=== PATIENT | female | born 1970 | race Caucasian/White ===

== ENCOUNTER 2016-12-01 07:53 | Inpatient (IN) ==
[2016-12-01] MEDS ORDERED: Aspirin 81 MG TAB.CHEW PO ONE (08:10)
--- NOTE | 2016-12-01 08:12 | Emergency Department Note ---
Disposition Clinical Impression: Chest pain Qualifiers: Chest pain type: unspecified Qualified Code(s): R07.9 - Chest pain, unspecified Disposition: Admitted As Inpatient Condition: Fair Time of Disposition: 10:11 Chest Pain HPI - General Chief Complaint: ED Chest Pain Stated Complaint: chest pains,right arm pain Time Seen by Provider: 12/01/16 07:58 Source: patient Limitations: no limitations Vital Signs Reviewed: Yes Nursing Notes Reviewed: Yes - History of Present Illness HPI Narrative: 46-year-old female with history of rheumatoid arthritis, obesity, family history of [place], presents with chest pain at rest going to her right scapula. It chest pain with acute onset at 5 AM, came to ER with continued 8 out of 10 crampy aching chest pain +nausea, radiating across her right chest and right back. history of rheumatoid arthritis, history of myalgia, states she still having pain has not taken any medication for pain. Denies : Leg swelling, estrogen use, prolonged recumbency or travel, previous DVT, denies fever chills weight loss weight changes, productive cough, vomiting, diarrhea, constipation. Pt complaint: chest pain Onset (ago): hour(s) Time: 05:00 Duration: constant Onset: during rest Pain Location: left chest Severity scale (1-10): 8 Quality: aching Pain Radiation: RUE, back Worsens with: exertion Associated symptoms: Reports: nausea. Denies: vomiting, diaphoresis, dyspnea, sense of impending doom Treatments prior to arrival chest pain: none - Related Data Home Medications Medication Instructions Recorded Confirmed Calcium Carbonate/Vitamin D3 1 tab PO DAILY 12/01/16 12/01/16 [Calcium 600-Vit D3 200 Tablet] Cetirizine HCl [All Day Allergy] 10 mg PO DAILY 12/01/16 12/01/16 Estrogens, Conjugated [Premarin] 0.625 mg PO DAILY 12/01/16 12/01/16 Famotidine [Heartburn Prevention] 10 mg PO DAILY 12/01/16 12/01/16 Folic Acid 1 mg PO DAILY 12/01/16 12/01/16 Gabapentin [Neurontin] 400 mg PO BID 12/01/16 12/01/16 Hydroxychloroquine [Plaquenuil] 200 mg PO DAILY 12/01/16 12/01/16 Methocarbamol [Robaxin] 500 mg PO BID PRN 12/01/16 12/01/16 Methotrexate [Otrexup] 15 mg PO QWEEK 12/01/16 12/01/16 Omeprazole [PriLOSEC] 40 mg PO DAILY 12/01/16 12/01/16 Tramadol HCl [Ultram] 100 mg PO BID PRN 12/01/16 12/01/16 Allergies Allergy/AdvReac Type Severity Reaction Status Date / Time cefuroxime [From Ceftin] Allergy Rash Verified 08/02/15 15:51 All systems ED: reviewed and negative except as stated. Constitutional: Denies: fever, chills Eyes: Denies: eye pain, eye discharge Cardiovascular: Reports: as per HPI, chest pain. Denies: palpitations Respiratory: Reports: as per HPI. Denies: cough, dyspnea Gastrointestinal: Denies: abdominal pain, nausea Genitourinary: Denies: urgency, dysuria Musculoskeletal: Reports: as per HPI, back pain. Denies: neck pain Integumentary: Denies: rash, abrasion Neurological: Denies: headache, weakness Chest Pain PMH - Past Medical History Medical history: Reports: arthritis, other Psychiatric history: Reports: no psych history - Social History Smoking Status: Never smoker Alcohol use: Reports: none Drug use: Reports: none Physical Exam Constitutional: alert and oriented, in NAD, vital signs reviewed and wnl HEENT: NCAT, sclera anicteric, PERRLA bilaterally, normal external ears bilaterally, nasal septum nondeviated, average dentition, MMM Neck: normal inspection, neck is supple, trachea midline Resp: normal chest inspection, CTA bilaterally, no resp distress CV: RRR, no m/g/r GI: normal inspection, Soft, NTND, BS present Back: normal inspection, no tenderness to palpation Neuro: A&O3, no gross motor or sensory deficits bilaterally MSK: normal inspection, bilateral UE and LE with normal ROM Psych: normal mood, normal affect Skin: No rashes, skin warm, dry, intact - General Limitations: no limitations General appearance: alert, in no apparent distress Course Course Narrative: 38-year-old female with atypical chest pain in the right chest going to the right arm, patient will get nitroglycerin, chest pain workup, concerned even though her heart score is 3-4, she does have risk factors of obesity, rheumatoid arthritis and family history, and she has never had an ischemic evaluation, there are some subtle half millimeter ST elevations in her lateral leads, there were not seen on previous EKG but that was 2010, will reassess - Reevaluation(s) Reevaluation #1: Given that the patient's symptoms improved completely with nitroglycerin, and she now has no chest pain, her repeated EKG shows no worsening changes, just still slight ST segment depressions mostly in V5, patient has atypical chest pain symptoms which are more specific for anginal chest pain female middle-aged patients, therefore will admit for chest pain rule out Time: 10:10 Vital Signs Temperature 97.7 F 12/01/16 07:56 Pulse Rate 72 12/01/16 07:56 Respiratory Rate 18 12/01/16 07:56 Blood Pressure 134/95 12/01/16 07:56 O2 Sat by Pulse Oximetry 98 12/01/16 07:56 Temperature 97.7 F 12/01/16 07:56 Pulse Rate 78 12/01/16 08:45 Respiratory Rate 16 12/01/16 10:21 Blood Pressure 114/81 12/01/16 10:21 O2 Sat by Pulse Oximetry 95 12/01/16 08:35 Oxygen Delivery Oxygen Delivery Room Air Chest Pain - MDM Narrative Medical decision making narrative: 38-year-old female with chest pain, [facility] in stable condition troponin negative, EKG with slight nonspecific ST changes, aspirin given in the emergency department, chest pain-free at the time of ED disposition - Differential Diagnosis Likely: pneumothorax, stable angina, unstable angina pectoris, atypical chest pain - Medical Records Medical records reviewed: Yes I reviewed the patient's medical records. - Lab Data Lab results reviewed: Yes I reviewed the patient's lab results. Result diagrams: 12/01/16 08:11 12/01/16 08:11 Lab Results 12/01/16 12/01/16 12/01/16 Range/Units 08:11 08:11 08:11 WBC 5.3 (4.3-11.1) K/mcL RBC 4.91 (3.82-4.97) M/mcL Hgb 14.7 (11.5-15.4) g/dL Hct 44.2 (35.3-44.9) % MCV 90.0 (83.0-100.0) fL MCH 29.9 (28.0-33.3) pg MCHC 33.3 (31.6-35.5) g/dL RDW 12.5 (11.5-14.5) % Plt Count 224 (140-400) K/mcL MPV 9.2 L (9.4-12.4) fL Immature Gran % 0.2 (0-4) % Seg Neutrophils % 57.4 % Lymphocytes % 29.2 % Monocytes % 9.6 % Eosinophils % 3.2 % Basophils % 0.4 % Neutrophils # 3.1 (1.6-8.9) K/mcL Lymphocytes # 1.6 (0.6-4.6) K/mcL Monocytes # 0.5 (0.0-1.3) K/mcL Eosinophils # 0.2 (0.0-0.6) K/mcL Basophils # 0.0 (0.0-0.2) K/mcL PT 12.9 H (9.4-12.1) Seconds INR 1.2 APTT 28.3 (26.0-36.0) Seconds Sodium 139 (136-145) mEq/L Potassium 4.1 (3.5-4.5) mEq/L Chloride 105 (98-109) mEq/L Carbon Dioxide 27 (19-29) mEq/L BUN 11 (7-20) mg/dL Creatinine 0.83 (0.57-1.11) mg/dL Est GFR ( Amer) > 60 (> 60) Est GFR (Non-Af Amer) > 60 (> 60) BUN/Creatinine Ratio 13 (6-26) Glucose 84 (70-99) mg/dL Calculated Osmolality 287 (280-300) Calcium 9.4 (8.6-10.8) mg/dL Troponin I (0-0.03) ng/mL 12/01/16 Range/Units 08:11 WBC (4.3-11.1) K/mcL RBC (3.82-4.97) M/mcL Hgb (11.5-15.4) g/dL Hct (35.3-44.9) % MCV (83.0-100.0) fL MCH (28.0-33.3) pg MCHC (31.6-35.5) g/dL RDW (11.5-14.5) % Plt Count (140-400) K/mcL MPV (9.4-12.4) fL Immature Gran % (0-4) % Seg Neutrophils % % Lymphocytes % % Monocytes % % Eosinophils % % Basophils % % Neutrophils # (1.6-8.9) K/mcL Lymphocytes # (0.6-4.6) K/mcL Monocytes # (0.0-1.3) K/mcL Eosinophils # (0.0-0.6) K/mcL Basophils # (0.0-0.2) K/mcL PT (9.4-12.1) Seconds INR APTT (26.0-36.0) Seconds Sodium (136-145) mEq/L Potassium (3.5-4.5) mEq/L Chloride (98-109) mEq/L Carbon Dioxide (19-29) mEq/L BUN (7-20) mg/dL Creatinine (0.57-1.11) mg/dL Est GFR ( Amer) (> 60) Est GFR (Non-Af Amer) (> 60) BUN/Creatinine Ratio (6-26) Glucose (70-99) mg/dL Calculated Osmolality (280-300) Calcium (8.6-10.8) mg/dL Troponin I 0.00 (0-0.03) ng/mL - Radiology Data Radiology results reviewed: Yes I reviewed the patient's radiology results. Chest X-Ray 12/01/16 07:58 IMPRESSION: No acute cardiopulmonary disease D/ / Edwin Shane MD / Edwin Shane MD Interpreting Provider: Edwin Shane MD - EKG Data EKG attestation: Yes I reviewed and interpreted this EKG. EKG shows normal: sinus rhythm Rate: normal (6-7 bpm [place] 169 QRS [address] segment elevations or depressions, T-wave inverted she noticed on lead 3 seen on previous EKG January 2011) Rhythm: NSR [place]/QRS: normal ST segment depression in: v5, v6 (0.5 mm) Interpretation: nonspecific ST-T wave changes, other (Repeat EKG at 954 shows 64 bpm [place] 164 QRS 87 QTc [address] segment depression in V5 unchanged ) - Core Measures AMI Core Measures Followed: Yes Heart Score - Score History: Moderately Suspicious EKG: Normal Age: 45-65 Risk Factors: 1-2 risk factors Troponin: Less than normal limit HEART Score Total: 3 Attestation Statement - Attestation Attestation: I examined this patient and my medical decision-making was reviewed with the EXTRA GANG SUPERVISOR/PA/Advanced Practice Nurse/Resident Physician. I agree with the documented findings, disposition and treatment plan as described except to the extent set forth below. Patient emergency department complaining of chest pain. Patient states a local from sleep around 5 AM this morning. The right upper chest and radiates down her right shoulder and arm. The pain is dull since it started. She took some Tylenol which helped. Denies any cardiac history. She does have RA. Examination she is in no distress. She has mild tenderness over the right upper chest. She is unsure if this reproduces the pain or not. It is not reproduced with movement of the arm. Plan. Patient is a very minimal ST depressions. Her troponin is negative. Her pain resolved with nitroglycerin. Patient will be admitted for further cardiac workup.
[2016-12-01 08:23] LABS: INR 1.2; Prothrombin Time 12.9 Seconds (9.4-12.1)
[2016-12-01] MEDS: Nitroglycerin 0.4 MG TAB.SUBL SL PRN ×3 (08:23→08:37)
[2016-12-01 08:25] LABS: Basophils % 0.4 %; Eosinophils # 0.2 K/mcL (0.0-0.6); Eosinophils % 3.2 %; Hematocrit 44.2 % (35.3-44.9); Hemoglobin 14.7 g/dL (11.5-15.4); Immature Granulocytes % 0.2 % (0-4); Lymphocytes # 1.6 K/mcL (0.6-4.6); Lymphocytes % 29.2 %; Mean Corpuscular HGB Conc 33.3 g/dL (31.6-35.5); Mean Corpuscular Hemoglobin 29.9 pg (28.0-33.3); Mean Platelet Volume 9.2 fL (9.4-12.4); Monocytes # 0.5 K/mcL (0.0-1.3); Monocytes % 9.6 %; Neutrophils # 3.1 K/mcL (1.6-8.9); Platelet Count 224 K/mcL (140-400); Red Blood Count 4.91 M/mcL (3.82-4.97); Red Cell Distribution Width 12.5 % (11.5-14.5); Segmented Neutrophils % 57.4 %
[2016-12-01 08:26] LABS: Activated Partial Thrombo Time 28.3 Seconds (26.0-36.0)
[2016-12-01 08:32] LABS: BUN/Creatinine Ratio 13 (6-26); Blood Urea Nitrogen 11 mg/dL (7-20); Calcium 9.4 mg/dL (8.6-10.8); Carbon Dioxide 27 mEq/L (19-29); Chloride 105 mEq/L (98-109); Glucose 84 mg/dL (70-99); Osmolality,Calculated 287 (280-300); Potassium 4.1 mEq/L (3.5-4.5); Sodium 139 mEq/L (136-145); eGFR For African Americans > 60 (> 60); eGFR For Non-African Americans > 60 (> 60)
[2016-12-01] MEDS ORDERED: Acetaminophen 325 MG TABLET PO PRN (11:24)
[2016-12-01] MEDS ORDERED: *HR* Morphine 2 MG/ML SYRINGE IVP PRN (11:24)
[2016-12-01] MEDS ORDERED: Ondansetron 4 MG/2 ML VIAL IVP PRN (11:24)
[2016-12-01] MEDS ORDERED: Naloxone 0.4 MG/ML INJ IVP PRN (11:24)
[2016-12-01] MEDS ORDERED: Methocarbamol 500 MG TABLET PO PRN (11:25)
--- NOTE | 2016-12-01 11:29 | Internal Med History&Physical ---
Date of Encounter: 12/01/16 Time of Encounter: 11:28 Assessment and Plan (1) Chest pain Current visit: Yes Status: Acute Atypical, right sided No chest wall tenderness Initial EKG and trop negative CXR unremarkable Risk factors include Lupus, Obesity, Cycle trops, check Lipids Obtain stress test if troponin negative X2 Nitro prn Qualifiers: Chest pain type: unspecified Qualified Code(s): R07.9 - Chest pain, unspecified (2) Lupus Current visit: Yes Status: Chronic Resume home meds Qualifiers: Systemic lupus erythematosus type: unspecified Systemic lupus erythematosus organ involvement: unspecified Qualified Code(s): M32.9 - Systemic lupus erythematosus, unspecified Internal Medicine - H&P: HPI Chief complaint: Chest pain Admitted From: Home Plans for Post Hospital Care: Home History of present illness: Ms. Kim is a 46 year old female with PMH of RA and Lupus on methotrexate, Obesity, presents with R sided chest pain which started at about 5 a.m this morning She describes the pain as sharp and radiating to her R arm, and Upper part of her chest. At the time she had the chest pain, it was 5-6/10, she denies associated n/v, diaporesis, dizziness or feeling of impending doom, no palpitation, no shortness of breath, no abdominal symptoms Chest pain was relieved by nitro given in the ER, she does not know the aggravating factors At time of review, she is chest pain free She denies any other symptoms She denies history of trauma Her mum has "cardiac caths, she is unsure at what age". She has never had any cardiac work up She has never smoked Work up in the ER is unremarkable, CXR WNL, CBC, Chem WNL, EKG NSR X2, no ischemic changes Past Med Surg Social Fam HX - Past Medical History Medical history: arthritis, RA, other Psychiatric history: no psych history - Past Surgical History Surgical History: , cholecystectomy, hysterectomy - Social History Smoking Status: Never smoker Smokeless Tobacco Status: No Alcohol use: none Drug use: none Internal Medicine - H&P: Meds Calcium Carbonate/Vitamin D3 [Calcium 600-Vit D3 200 Tablet] 1 tab PO DAILY [History] Cetirizine HCl [All Day Allergy] 10 mg PO DAILY 12/01/16 [History] Estrogens, Conjugated [Premarin] 0.625 mg PO DAILY 12/01/16 [History] Famotidine [Heartburn Prevention] 10 mg PO QTUTHSA 12/01/16 [History] Folic Acid 1 mg PO DAILY 12/01/16 [History] Gabapentin [Neurontin] 400 mg PO BID 12/01/16 [History] Hydroxychloroquine [Plaquenuil] 200 mg PO DAILY 12/01/16 [History] Methocarbamol [Robaxin] 500 mg PO BID PRN 12/01/16 [History] Methotrexate [Otrexup] 15 mg PO QWEEK 12/01/16 [History] Multivitamin [Multivitamins] 1 each PO DAILY 12/01/16 [History] Omeprazole [PriLOSEC] 40 mg PO QMWFSA 12/01/16 [History] Tramadol HCl [Ultram] 100 mg PO BID PRN 12/01/16 [History] Allergies cefuroxime [From Ceftin] Allergy (Verified 08/02/15 15:51) Rash All Systems PM: A 10-system review of systems was performed and is negative for pertinent findings except as documented above in the HPI. - Constitutional Constitutional: as per HPI - EENT Eyes: as per HPI Ears: as per HPI Nose, mouth and throat: as per HPI - Cardiovascular Cardiovascular ROS IM: as per HPI - Respiratory Respiratory: as per HPI - Gastrointestinal Gastrointestinal: as per HPI - Genitourinary Genitourinary: as per HPI - Musculoskeletal Musculoskeletal ROS IM: as per HPI - Integumentary Integumentary IM: as per HPI - Neurological Neurological ROS: as per HPI - Hematologic/Lymphatic Hematologic/Lymphatic: as per HPI - Constitutional Vitals: Temp Pulse Resp BP Pulse Ox 97.7 F 78 16 114/81 95 12/01/16 07:56 12/01/16 08:45 12/01/16 10:21 12/01/16 10:21 12/01/16 08:35 General appearance: Present: A&O X 3, pleasant, no acute distress, obese - Head Head exam: Present: atraumatic, normocephalic - Eye Eye exam: Present: PERRL, conjuntiva pink, sclera anicteric Pupils: Present: PERRL - Neck Neck exam general surgery: Present: supple, trachea midline. Absent: lymphadenopathy - Respiratory Respiratory exam: Present: CTAB. Absent: accessory muscle use, rales, rhonchi, wheezes - Cardiovascular Cardiovascular exam: Present: RRR, +S1, +S2. Absent: diastolic murmur, gallop, rubs, systolic murmur - GI/Abdominal GI/Abdominal exam: Present: normal bowel sounds, soft, no peritoneal signs. Absent: distended, tenderness - Extremities Exam Extremities exam: Present: warm, radial pulses palpable and symetrical. Absent : calf tenderness, cyanotic, pedal edema - Neurological Exam Neurological exam: Present: alert, CN II-XII intact, oriented X3, no focal deficits. Absent: pronater drift, facial droop, speech deficit - Skin Skin exam: Present: dry, intact Internal Med - H&P Results - Labs CBC & Chem 7: 12/01/16 08:11 12/01/16 08:11
[2016-12-01] MEDS: Gabapentin 400 MG CAPSULE PO SCH ×2 (13:40→20:48)
[2016-12-01] MEDS: Folic Acid 1 MG TABLET PO SCH (13:40)
[2016-12-01] MEDS: Loratadine 10 MG TABLET PO SCH (13:40)
[2016-12-01] MEDS: Famotidine 20 MG TABLET PO SCH (13:40)
[2016-12-01 13:52] LABS: Chol/HDL Ratio 3.4 (0-4.9)
[2016-12-01] MEDS ORDERED: *HR* Heparin 5,000 UNIT/ML VIAL IVP PRN ×2 (14:04)
[2016-12-01] MEDS ORDERED: *HR* Heparin 5,000 UNIT/ML VIAL IVP ONE (14:04)
[2016-12-01] MEDS ORDERED: Heparin 25,000 UNIT/500 ML D5W 25,000 UNIT/500 ML MLS IVC SCH (14:15)
--- NOTE | 2016-12-01 14:33 | Cardiology Consult Note ---
Date of Encounter: 12/01/16 Time of Encounter: 14:30 Assessment and Plan (1) NSTEMI (non-ST elevated myocardial infarction) Current Visit: Yes Status: Acute Troponin 0.00, 0.13. Presented with right sided chest pain that woke her from sleep at 5AM, worse with exertion, radiated to right arm, relieved with nitro. Start heparin gtt, ASA, Statin, BB. Check echo. No prior cardiac hx. Risk factors for CAD include Lupus (inflammatory disease), s/p hysterectomy, and obesity. Recommend [facility]. R/B/A discussed. Pt agrees to proceed, but would like to wait until tomorrow. Currently chest pain free. LHC tomorrow. Continue to follow. Discussion w patient/family: The assessment and plan as outlined above was discussed with the patient and/or family members who expressed understanding and agreement. All questions were answered. Thank you for involving us in the care of your patient. Please call with any questions. I will discuss all the above with Dr. Jain and make changes as necessary. History of Present Illness Consult date: 12/01/16 Requesting physician: Casey Mcdermott Consult reason: NSTEMI Chief complaint: chest pain History of present illness: Ms. Kim is a 46 year old female with PMH of RA and Lupus on methotrexate, Obesity, presents with R sided chest pain which started at about 5 a.m this morning that woke her from sleep, worsened with exertion. She describes the pain as sharp and radiating to her R arm, and Upper part of her chest. At the time she had the chest pain, it was 5-6/10. It was relieved with sublingual nitro in ED without recurrence. Troponin 0.00, 0.13 and cardiology was consulted. Past Med Surg Social Fam HX - Past Medical History Medical history: arthritis, RA, other Psychiatric history: no psych history - Past Surgical History Surgical History: , cholecystectomy, hysterectomy - Social History Smoking Status: Never smoker Smokeless Tobacco Status: No Alcohol use: none Drug use: none Medications and Allergies Calcium Carbonate/Vitamin D3 [Calcium 600-Vit D3 200 Tablet] 1 tab PO DAILY [History] Cetirizine HCl [All Day Allergy] 10 mg PO DAILY 12/01/16 [History] Estrogens, Conjugated [Premarin] 0.625 mg PO DAILY 12/01/16 [History] Famotidine [Heartburn Prevention] 10 mg PO QTUTHSA 12/01/16 [History] Folic Acid 1 mg PO DAILY 12/01/16 [History] Gabapentin [Neurontin] 400 mg PO BID 12/01/16 [History] Hydroxychloroquine [Plaquenuil] 200 mg PO DAILY 12/01/16 [History] Methocarbamol [Robaxin] 500 mg PO BID PRN 12/01/16 [History] Methotrexate [Otrexup] 15 mg PO QWEEK 12/01/16 [History] Multivitamin [Multivitamins] 1 each PO DAILY 12/01/16 [History] Omeprazole [PriLOSEC] 40 mg PO QMWFSA 12/01/16 [History] Tramadol HCl [Ultram] 100 mg PO BID PRN 12/01/16 [History] Allergies cefuroxime [From Ceftin] Allergy (Verified 08/02/15 15:51) Rash All Systems Review: A 10-system review of systems was performed and is negative for pertinent findings except as documented above in the HPI. - Cardiovascular Cardiovascular: as per HPI, chest pain at rest, chest pain with exertion, radiating jaw, neck or arm pain Physical Examination Vital Signs, Last 4 Hours Temp Pulse Resp BP Pulse Ox 12/01/16 12:03 98.1 F 64 13 112/76 97 Vital Signs Temp Pulse Resp BP Pulse Ox 12/01/16 12:03 98.1 F 64 13 112/76 97 12/01/16 10:21 16 114/81 12/01/16 08:45 78 18 103/63 12/01/16 08:35 78 18 111/68 95 12/01/16 08:30 79 16 112/72 96 12/01/16 08:23 75 18 130/81 96 12/01/16 07:56 97.7 F 72 18 134/95 98 Intake and Output 11/30/16 12/01/16 12/01/16 23:59 07:59 15:59 Intake Total 360 / 360 Balance 360 / 360 Intake: Oral 360 / 360 Other: Meal Lunch Percent of Meal Consumed 100% Weight 96.615 kg 96.615 kg Patient Weight 12/01/16 23:59 Weight 96.615 kg General: Conversant, No Apparent Distress HEENT: Atraumatic, Normocephaly, Mucus Membranes Moist Neck: No JVD, Normal carotid pulses Cardiac: Reg Rate and Rhythm, Normal S1 and S2, No Murmur Lungs: Normal Breath Sounds, No Wheeze, Rales, Rhonchi Neuro: Alert and responsive, No focal deficits noted Abdomen: Soft, Non-Tender Skin: No rashes noted on visualized skin Musculoskeletal: No Chest Wall Tenderness Extremities: No Clubbing, No Cyanosis, No Edema, Normal Pulses Results 12/01/16 08:11 12/01/16 08:11 Lab Results 12/01/16 13:29 Troponin I 0.13 H* Short CBC 12/01/16 Range/Units 08:11 WBC 5.3 (4.3-11.1) K/mcL Hgb 14.7 (11.5-15.4) g/dL Hct 44.2 (35.3-44.9) % Plt Count 224 (140-400) K/mcL Neutrophils # 3.1 (1.6-8.9) K/mcL BMP 12/01/16 Range/Units 08:11 Sodium 139 (136-145) mEq/L Potassium 4.1 (3.5-4.5) mEq/L Chloride 105 (98-109) mEq/L Carbon Dioxide 27 (19-29) mEq/L BUN 11 (7-20) mg/dL Creatinine 0.83 (0.57-1.11) mg/dL Glucose 84 (70-99) mg/dL Calcium 9.4 (8.6-10.8) mg/dL Cardiac Enzymes 12/01/16 12/01/16 Range/Units 13:29 08:11 Troponin I 0.13 H* 0.00 (0-0.03) ng/mL Impressions Chest X-Ray 12/01/16 07:58 IMPRESSION: No acute cardiopulmonary disease D/ / Edwin Shane MD / Edwin Shane MD Interpreting Provider: Edwin Shane MD Active Medications Acetaminophen (Tylenol) 650 mg PO Q6HR PRN PRN Reason: Mild Pain (1-3) Stop: 06/02/17 11:25 Last Admin: 12/01/16 13:47 Dose: 650 mg Aspirin (Aspirin Ec) 81 mg PO DAILY [facility] Stop: 06/03/17 09:01 Atorvastatin Calcium (Lipitor) 40 mg PO HS [facility] Stop: 06/02/17 21:01 Estrogens Conjugated (Premarin) 0.625 mg PO DAILY [facility] Stop: 06/02/17 12:30 Last Admin: 12/01/16 13:44 Dose: 0.625 mg Famotidine (Pepcid) 10 mg PO DAILY [facility] PRN Reason: Protocol Stop: 06/02/17 12:29 Last Admin: 12/01/16 13:40 Dose: 10 mg Folic Acid (Folic Acid) 1 mg PO DAILY [facility] Stop: 06/02/17 11:31 Last Admin: 12/01/16 13:40 Dose: 1 mg Gabapentin (Neurontin) 400 mg PO BID [facility] Stop: 06/02/17 12:30 Last Admin: 12/01/16 13:40 Dose: 400 mg Heparin Sodium (Porcine) (Heparin) 4,000 unit IVP Q6HR PRN PRN Reason: SEE COMMENTS Stop: 06/02/17 14:05 Heparin Sodium (Porcine) (Heparin) 2,000 unit IVP Q6H PRN PRN Reason: SEE COMMENTS Stop: 06/02/17 14:05 Hydroxychloroquine Sulfate (Plaquenuil) 200 mg PO DAILY [facility] Stop: 06/02/17 11:31 Last Admin: 12/01/16 13:40 Dose: 200 mg Heparin Sodium/Dextrose (Heparin 25,000 Unit/500 Ml D5w) 25,000 unit in 500 mls @ 19.999 mls/hr IVC .Q24H [facility]; 10.35 UNIT/KG/HR PRN Reason: Protocol Stop: 06/02/17 14:16 Loratadine (Claritin) 10 mg PO DAILY [facility] Stop: 06/02/17 12:30 Last Admin: 12/01/16 13:40 Dose: 10 mg Methocarbamol (Robaxin) 500 mg PO BID PRN PRN Reason: Muscle Spasm Stop: 06/02/17 11:26 Morphine Sulfate (Morphine Sulfate) 2 mg IVP Q4HR PRN PRN Reason: Severe Pain (7-10) Stop: 06/02/17 11:25 Naloxone HCl (Narcan) 0.4 mg IVP Q2MIN PRN PRN Reason: Opioid Reversal Stop: 06/02/17 11:25 Nitroglycerin (Nitroglycerin) 0.4 mg SL Q5MIN PRN PRN Reason: Chest Pain Stop: 06/02/17 08:12 Last Admin: 12/01/16 08:37 Dose: 0.4 mg Omeprazole (Prilosec) 40 mg PO DAILY [facility] Stop: 06/03/17 09:01 Ondansetron HCl (Zofran) 4 mg IVP Q8HR PRN PRN Reason: Nausea And Vomiting Stop: 06/02/17 11:25 Pharmacy Profile Note (Patient Taking Own Medication) 1 each PO DAILY [facility] Stop: 06/03/17 09:01 Tramadol HCl (Ultram) 100 mg PO BID PRN PRN Reason: MODERATE Pain Stop: 06/02/17 11:26 - EKG Interpretation EKG results cardiology: personally reviewed (SR, nonspecific changes) Consult Discharge Plan - Plan Referrals: Reyes Tidwell MD [Primary Care Provider] -
[2016-12-01 14:37] LABS: INR 1.2; Prothrombin Time 13.3 Seconds (9.4-12.1)
[2016-12-01 14:39] LABS: Activated Partial Thrombo Time 28.6 Seconds (26.0-36.0)
[2016-12-01] MEDS ORDERED: *HR* Ticagrelor 90 MG TABLET PO ONE ×2 (14:44→18:00)
[2016-12-01 14:46] LABS: Hematocrit 40.7 % (35.3-44.9); Hemoglobin 13.6 g/dL (11.5-15.4); Mean Corpuscular HGB Conc 33.4 g/dL (31.6-35.5); Mean Corpuscular Hemoglobin 30.2 pg (28.0-33.3); Mean Corpuscular Volume 90.4 fL (83.0-100.0); Mean Platelet Volume 9.5 fL (9.4-12.4); Platelet Count 212 K/mcL (140-400); Red Cell Distribution Width 12.5 % (11.5-14.5)
--- NOTE | 2016-12-01 17:49 | Electrocardiograph Report ---
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
--- NOTE | 2016-12-01 17:49 | Electrocardiograph Report ---
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
[2016-12-01] MEDS: traMADol 50 MG TABLET PO PRN (20:57)
[2016-12-01] MEDS ORDERED: Gabapentin 400 MG CAPSULE PO SCH (21:00)
[2016-12-02 05:45] LABS: Basophils % 0.3 %; Eosinophils # 0.2 K/mcL (0.0-0.6); Hematocrit 39.2 % (35.3-44.9); Hemoglobin 13.3 g/dL (11.5-15.4); Immature Granulocytes % 0.1 % (0-4); Lymphocytes # 1.4 K/mcL (0.6-4.6); Lymphocytes % 19.1 %; Mean Corpuscular HGB Conc 33.9 g/dL (31.6-35.5); Mean Corpuscular Hemoglobin 30.9 pg (28.0-33.3); Mean Corpuscular Volume 91.2 fL (83.0-100.0); Mean Platelet Volume 9.6 fL (9.4-12.4); Monocytes # 0.6 K/mcL (0.0-1.3); Monocytes % 7.9 %; Neutrophils # 4.9 K/mcL (1.6-8.9); Platelet Count 198 K/mcL (140-400); Red Cell Distribution Width 12.7 % (11.5-14.5); Segmented Neutrophils % 69.6 %
[2016-12-02 06:06] LABS: BUN/Creatinine Ratio 12 (6-26); Blood Urea Nitrogen 10 mg/dL (7-20); Carbon Dioxide 26 mEq/L (19-29); Chloride 106 mEq/L (98-109); Glucose 99 mg/dL (70-99); Osmolality,Calculated 287 (280-300); Sodium 139 mEq/L (136-145); eGFR For African Americans > 60 (> 60); eGFR For Non-African Americans > 60 (> 60)
[2016-12-02] MEDS ORDERED: Heparin 1,000 UNITS/500 mL NS 500 ML ONE (07:45)
[2016-12-02] MEDS ORDERED: 0.9 % Sodium Chloride 1,000 ML ONE ×2 (07:45→08:19)
[2016-12-02] MEDS ORDERED: *HR* Heparin 10,000 UNIT/10 ML VIAL ONE (07:45)
[2016-12-02] MEDS ORDERED: Verapamil 5 MG/2 ML VIAL ONE (07:45)
[2016-12-02] MEDS ORDERED: Nitroglycerin 1,000 MCG/10 ML VIAL IV ONE (07:46)
[2016-12-02] MEDS: Aspirin Enteric Coated 81 MG Tablet PO SCH (08:00)
[2016-12-02] MEDS: Famotidine 20 MG TABLET PO SCH (08:01)
[2016-12-02] MEDS: Loratadine 10 MG TABLET PO SCH (08:01)
[2016-12-02] MEDS: Gabapentin 400 MG CAPSULE PO SCH ×2 (08:01→21:19)
[2016-12-02] MEDS: Folic Acid 1 MG TABLET PO SCH (08:01)
--- NOTE | 2016-12-02 08:14 | Pre-Sedation Evaluation ---
Pre-sedation evaluation - Pre-sedation checklist Date of procedure: 12/02/16 Procedure: Heart Catherization Recent Vitals: Last Vital Signs Temp 97.9 F 12/02/16 07:04 Pulse 78 12/02/16 07:04 Resp 16 12/02/16 07:04 BP 127/84 12/02/16 07:04 Pulse Ox 97 12/02/16 07:04 H&P (including ROS) documented in medical record: Yes Previous reaction to sedatives/anesthetics: No Dietary Status: NPO after Midnight Dentition: dentures removed ASA Classification *see protocol: CLASS II-Mild systemic disease Plan of Care: Pt appropriate candidate for procedure/moderate/conscious sedation , Risks/benefits of procedure/sedation discussed w/ patient/family
[2016-12-02] MEDS ORDERED: *HR* Midazolam HCl 2 MG/2 ML VIAL ONE (08:19)
[2016-12-02] MEDS ORDERED: *HR* FentaNYL (PF) 100 MCG/2 ML VIAL ONE (08:20)
[2016-12-02] MEDS ORDERED: CALCIUM CARBONATE PO SCH (09:00)
[2016-12-02] MEDS ORDERED: Loratadine 10 MG TABLET PO SCH (09:00)
[2016-12-02] MEDS ORDERED: Famotidine 20 MG TABLET PO SCH (09:00)
[2016-12-02] MEDS ORDERED: Metoprolol XL (24 HR) Succ 25 MG TAB.ER.24H PO SCH (09:00)
[2016-12-02] MEDS ORDERED: VITAMIN D3 PO SCH (09:00)
[2016-12-02] MEDS ORDERED: *HR* Ticagrelor 90 MG TABLET PO SCH (09:00)
--- NOTE | 2016-12-02 09:08 | Invasive Diagnostic Lab Proc ---
Name: Carmel Kim Date of Study: 12/02/2016 Date: 1970 Ht: 64.2in Medical Record#: [id number] Age: 46 Wt: 213.85lb Gender: Female BSA: 2.02 Order #: [id number] BMI: 36.51 Physicians Procedure Physician: Joseph Lemus MD, FACC Referring MD: Referring MD: Staff Name Position Time In Magalis Case RT (R) Scrub 08:24 AM Yumi Kearns RN Bevel Gear Generator Operator 08:24 AM Alethea Monge RT (R) Monitor 08:24 AM Nirav Crews RT (R) Monitor 09:01 AM Indications Indication Non-Stemi Procedures Performed Procedure L HRT ARTERY/VENTRICLE ANGIO Pre-Procedure Checklist Informed consent is complete signed and on chart. H\\T\\P is on chart. ID band is on and ID verified with patient. Patient NPO for procedure The procedure was described for the patient and questions were answered. Blood Pressure: 127/84 ECG is on chart. Rhythm: NSR Plan of Care Patient will tolerate the procedure without complications. Adequate level of comfort will be maintained. Hemodynamics will remain stable Patient will recover from procedure without complications. Respiratory function will be maintained. Cardiac rhythm will remain stable. Patient temperature will be maintained. Patient and/or family have verbalized understanding of the procedure. Patient Education Chief Complaint/Reason for Test: Cardiac Cath Developmental Category: Adult (18-64 years) Developmentally Appropriate for Age: Yes Learning Barriers: None Education Needs: Procedure Education Method: Verbal Information Taught: Cardiac Cath Educational Evaluation: Able to repeat information Intravenous Access Time IV Size Location DC'd Fluid/Drip Rate Units RN 08:24 AM 20g 1 /" Patent On Arrival Lt Antecubital 0.9NaCl 25 ml/hr Allergies cefuroxime Vital Signs Time BP (mmHg) HR (bpm) O2 Sat. RR (bpm) LOC 08:25 AM 127 / 84 97 % 16 5 = Fully awake and oriented or at pre-proc level 08:26 AM / % 4 = Oriented but drowsy 08:25 AM 163 / 92 81 99 % 18 08:27 AM 149 / 92 83 100 % 19 08:30 AM 142 / 97 85 97 % 17 08:33 AM 139 / 93 83 97 % 14 08:36 AM 148 / 94 87 98 % 14 08:39 AM 134 / 87 92 98 % 18 08:42 AM 141 / 85 97 97 % 17 08:45 AM 127 / 85 97 96 % 20 08:48 AM 138 / 87 100 96 % 17 08:51 AM 133 / 89 94 96 % 16 08:54 AM 134 / 83 95 96 % 18 08:57 AM 134 / 88 96 97 % 16 Procedural Medications Time Medication Dose Units Method Given By 08:25 AM Oxygen 2 L/min nasal cannula Yumi Kearns RN 08:25 AM Versed 2 mg Intravenous Yumi Kearns RN 08:26 AM Fentanyl 50 mcg Intravenous Yumi Kearns RN 08:40 AM Lidocaine 2% 0.1 ml Subcutaneous Joseph Lemus MD, FAC 08:40 AM Heparin 2000 units Nitroglycerin 200 mcg Verapamil 2.5 mg Intraarterial Joseph Lemus MD, [facility] ASA Classification: CLASS II- Mild systemic disease (i.e. well-controlled diabetes, hypertension, asthma, cigarette smoking) Annemarie Score Preprocedure Postprocedure Activity 2- Moves 4 extremities sustained head lift Activity 2- Moves 4 extremities sustained head lift Circulation 2- SBP +/= 20 points of pre-anesthetic level Circulation 2- SBP +/= 20 points of pre-anesthetic level Consciousness 2- Awake and alert oriented x 3 Consciousness 2- Awake and alert oriented x 3 O2 Saturation 2- Able to maintain O2 satruation of 92% on room air O2 Saturation 2- Able to maintain O2 satruation of 92% on room air Respiratory 2- Able to deep breathe and cough well Respiratory 2- Able to deep breathe and cough well Total Score 10 Total Score 10 Contrast Agent: Isovue Diagnostic Contrast: 77 ml Total Contrast: 77 ml Fluoro Dose: 340 mGy Procedure Log Time Note Enter By 07:49 AM CathStat 08:18 AM 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 tsites 08:19 AM Procedure start 08:19 tsites 08:23 AM Recorded ECG: HR=77 Condition=Condition 1 08:24 AM Vitals capture started with the following parameters, Patient=Adult, Interval=3 min, Initial Mbiccqsm=546 mmHg, Deflation Rate=5 mmHg, Cuff placed on Right Arm 08:24 AM Magalis Case RT (R) Position: Scrub Time in: 08:24 tsites 08:24 AM Yumi Kearns RN Position: Bevel Gear Generator Operator Time in: 08:24 tsites 08:24 AM Alethea Monge RT (R) Position: Monitor Time in: 08:24 tsites 08:24 AM Patient charges- Angio tray pack, Navilyst 3mm J, Pulse Oximetry and ACIST tubing and transducer tsites 08:25 AM HR=81 bpm, CWPY=719/92 mmhg, SpO2=99.0 %, Resp=18 B/min, Comment=NSR 08:25 AM ASA Class CLASS II- Mild systemic disease (i.e. well-controlled diabetes, hypertension, asthma, cigarette smoking) tsites 08:25 AM Time: 08:25 Oxygen on at 2 L/min per nasal cannula by [facility]earns [facility] 08:25 AM Time: 08:25 Versed 2 mg Intravenous Given by Yumi Kearns RN [facility] 08:26 AM Time: 08:26 Fentanyl 50 mcg Intravenous Given by Yumi Kearns RN [facility] 08: AM Time: 08:26 Patient comfortable and pain free: Yes [facility] 08: AM Time: 08:26LOC: 4 = Oriented but drowsy tsites 08:27 AM HR=83 bpm, HBAM=340/92 mmhg, BnX0=640.0 %, Resp=19 B/min, Comment=NSR 08:30 AM HR=85 bpm, MWQL=814/97 mmhg, SpO2=97.0 %, Resp=17 B/min, Comment=NSR 08:31 AM Pressure channel 1 zeroed. 08:33 AM HR=83 bpm, JDSQ=859/93 mmhg, SpO2=97.0 %, Resp=14 B/min, Comment=NSR 08:36 AM HR=87 bpm, AYKC=031/94 mmhg, SpO2=98.0 %, Resp=14 B/min, Comment=NSR 08:39 AM HR=92 bpm, VIQN=877/87 mmhg, SpO2=98.0 %, Resp=18 B/min, Comment=NSR 08:39 AM Time out performed according to hospital policy [email or web address] 08:40 AM Time: 08:40 0.1 ml Lidocaine 2% to right radial Subcutaneous Given by Joseph Lemus MD, [facility] [email or web address] 08:40 AM Access obtained by percutaneous puncture. 6Fr 10cm Terumo Mobile sheath placed in right Radial artery. [id number] [email or web address] 08:41 AM Time: 08:40 Patient given 2,000 units Heparin, 200 mcg Nitroglycerin, and 2.5 mg Verapamil Intraarterial by Joseph Lemus MD, [facility] [email or web address] 08:41 AM 0.035 260cm Navilyst 3mmJ wire [id number] [email or web address] 08:41 AM 5Fr TIG catheter inserted over the wire DN [email or web address] 08:42 AM HR=97 bpm, KKBR=327/85 mmhg, SpO2=97.0 %, Resp=17 B/min, Comment=NSR 08:43 AM Catheter removed [email or web address] 08:44 AM 5Fr FL 3.5 catheter inserted over the wire [id number] [email or web address] 08:45 AM LCA angiography performed in multiple views. [email or web address] 08:45 AM Recorded Pressure: Ao, HR=97, Condition=Condition 1 (Aorta) Ao 120/91/105 08:45 AM HR=97 bpm, VGDZ=068/85 mmhg, SpO2=96.0 %, Resp=20 B/min, Comment=NSR 08:46 AM Catheter removed [email or web address] 08:48 AM 5Fr 3DRC catheter inserted over the wire [id number] [email or web address] 08:48 AM TI=541 bpm, CMUC=968/87 mmhg, SpO2=96.0 %, Resp=17 B/min, Comment=NSR 08:49 AM 5Fr AR catheter inserted over the wire [id number] [email or web address] 08:50 AM Catheter removed [email or web address] 08:51 AM HR=94 bpm, YAVL=875/89 mmhg, SpO2=96.0 %, Resp=16 B/min, Comment=NSR 08:51 AM Recorded Pressure: Ao, HR=95, Condition=Condition 1 (Aorta) Ao 120/92/106 08:51 AM RCA angiography performed in multiple views. [email or web address] 08:52 AM Coronary Dominance: right [email or web address] 08:53 AM Catheter removed [email or web address] 08:53 AM 5Fr Pigtail catheter inserted over the wire DN [email or web address] 08:53 AM Catheter selectively placed in left ventricle [email or web address] 08:54 AM Bolus angiogram of left Ventricle complete: 10 ml/sec for a total of 20 mls [email or web address] 08:54 AM HR=95 bpm, NSNW=844/83 mmhg, SpO2=96.0 %, Resp=18 B/min, Comment=NSR 08:55 AM Pressure channel 1 zero failed. 08:55 AM Recorded Pressure: LV, HR=91, Condition=Condition 1 (Left Ventricle) LV 121/2/11 08:55 AM Recorded Pressure: LV, Ao, HR=94, Condition=Condition 1 (Left Ventricle) LV 114/17/36, (Aorta) Ao 119/60/91 08:56 AM Catheter removed [email or web address] 08:56 AM Procedure completed at 08:56 [email or web address] 08:57 AM Sign out completed: Radiation Dose 340.04 mGy Fluoro Time: 4.5 Isovue 370 - 200ml contrast 77 ml given by Joseph Lemus MD, [facility]. Complications: NoneCardiac Rehab Consult needed: NoConfirmed administered medications: Yes [email or web address] 08:57 AM Isovue 370 - 200ml,1 Bottle(s) used. [email or web address] 08:57 AM HR=96 bpm, KRFO=086/88 mmhg, SpO2=97.0 %, Resp=16 B/min, Comment=NSR 08:58 AM Arterial sheath pulled, V+Pad closure device used and was Successful S/N. [email or web address] 08:58 AM 9 ml air in Vasc Band. [email or web address] 08:58 AM Post ECG NSR [email or web address] 08:58 AM Post Blood Pressure 134/88 [email or web address] 08:58 AM 08:58 Post Pulses Rt Radial 2+ [email or web address] 08:58 AM Information taught Cardiac Cath [email or web address] 08:58 AM Education needs Procedure, Plan of Care, and Disease Process [email or web address] 08:58 AM Learning barriers :None [email or web address] 08:58 AM Education Methods Verbal [email or web address] 08:58 AM Education evaluation Able to repeat information [email or web address] 08:59 AM Site status No bleeding/hematoma - Rt Wrist as reported by Magalis Case RT (R) at 08:58 [email or web address] 08:59 AM Delay to floor No [email or web address] 08:59 AM Complications: None [email or web address] 08:59 AM Fluoro Time: 4.5 [email or web address] 08:59 AM Isovue 370 - 200ml contrast 77 [facility] [email or web address] 08:59 AM Radiation Dose 340.04 mGy [email or web address] 09:00 AM Nirav Crews RT (R) Position: Monitor Time in: 09:01 [email or web address] 09:03 AM Report given to hilton VIGIL Pt taken to 2A Room #74. 09:02 [email or web address] 09:03 AM Patient out of room: 09:03 [email or web address] 09:03 AM Family placed in not available. [email or web address] Complications Complication None None Hemodynamics Pressures Site Systolic/A Wave Diastolic/V Wave Mean LV 121 2 11 LV 114 17 36 AO 119 60 91 AO 120 91 105 AO 120 92 106 Post Procedure Information Blood Pressure: 134/88 mmHg Rhythm: NSR Post procedural instructions were given Closure Device Time Device Success/Fail 12/02/2016 8:59:00 AM Mechanical Compression yes Site Checks Time Location Status Staff Sheath In? Note 08:58 AM Rt Wrist No bleeding/hematoma Magalis Case RT (R) Pulses Time Site Pre-Procedure Post-Procedure Note Bilateral DP \\T\\ PT 2+ 8:58:00 AM Rt Radial 2+ Updated by Alethea Monge RT(R) on 12/02/2016 9:03:21 AM electronically signed on 12/02/2016 9:04:08 AM with status of Final
--- NOTE | 2016-12-02 09:24 | Event Note ---
Date of Encounter: 12/02/16 Time of Encounter: 09:23 - Cardiology Event Note Peak troponin 0.49. LHC today with very minimal CAD. No intervention warranted. Recommend daily 81mg ASA. EF preserved. Cardiology signing off. Reconsult PRN. Follow-up as outpt in 3-4 weeks s/p C.
[2016-12-02] MEDS ORDERED: Patient Taking Own Medication 1 EACH PO SCH (13:57)
--- NOTE | 2016-12-02 14:32 | Invasive Diagnostic Lab ---
Name: Carmel Kim Date of Study: 12/02/2016 Date: 1970 Ht: 163.0 cm /64.2 in Medical Record#: [id number] Age: 46 Wt: 97. kg / 213.85 lb Account/Order#: [id number] Gender: Female BSA: 2.02 Order #: [id number] Fluoro Dose: 340 mGy BMI: 36.51 Procedure Physician: Joseph Lemus MD, FACC Referring MD: Referring MD: Procedures Performed: LEFT HEART CATH Indications: Non-Stemi Impressions: Coronary arteries are angiographically normal. The left ventricle is normal and has normal contractility EF 60% Recommendations: Optimal medical therapy of patient's disease. Aggressive risk factor modification. History/Risk Factors: obesity ra lupus Family History of CAD Procedure Access obtained in the right Radial artery by percutaneous puncture Complications: None, None Contrast: Isovue 77ml Closure Device: Mechanical Compression Hemodynamics: Pressures Site Systolic/ A Wave Diastolic/ V Wave End Diastolic/ Mean HR LV 121 2 11 91 LV 114 17 36 94 AO 119 60 91 94 AO 120 91 105 97 AO 120 92 106 95 LV Ventriculography Ejection Method: LV Gram Ejection Fraction: 60% Wall Motion: MEDRANO Anterobasal Normal Anterolateral Normal Apical: Normal Inferoapical Normal Inferobasal Normal Coronary Dominance: right Lesion Findings/Interventions * Left Main Coronary Artery The LMCA is angiographically free of disease. * Left Anterior Descending The LAD is angiographically free of disease. The 1st Diagonal is angiographically free of disease. * Circumflex The Circumflex is angiographically free of disease. The 1st Marginal is angiographically free of disease. * Right Coronary Artery The RCA is angiographically free of disease. The Right PDA is angiographically free of disease. Updated by RT Jodee(R) on 12/02/2016 9:01:39 AM Joseph Lemus MD, FACC electronically signed on 12/02/2016 2:28:40 PM with status of Final
--- NOTE | 2016-12-02 17:47 | Internal Med Progress Note ---
Date of Encounter: 12/02/16 Time of Encounter: 17:45 - Assessment and plan (1) Chest pain Current Visit: Yes Status: Acute Assessment and plan: Chest pain typical for unstable angina, relieved by nitroglycerin. She had no recurrent chest pain. Cardiac catheterization revealed minimal evidence of CAD. No intervention was performed. Differential diagnosis for chest pain also includes PE and her case. She is at very high risk for DVT and PE due to history of lupus and previous personal history of venous thrombosis. We will continue with heparin drip. She cannot undergo CT angiogram today due to contrast load for cardiac catheterization. Start IV fluids and obtain CT of the chest tomorrow to rule out PE. Qualifiers: Chest pain type: chest pain due to myocardial ischemia Ischemic chest pain type: unstable angina pectoris Qualified Code(s): I20.0 - Unstable angina (2) NSTEMI (non-ST elevated myocardial infarction) Current Visit: Yes Status: Acute Assessment and plan: Cardiac catheterization done today showed minimal CAD no intervention was done. I discussed the case with cardiology, troponin elevation could be secondary to small branch occlusion not easily visible on the angiogram versus subendocardial ischemia. We will treat with aggressive medical management per cardiology recommendations. (3) DVT prophylaxis Current Visit: Yes Status: Acute Assessment and plan: On heparin drip. - Subjective Interval history: Patient had severe sharp and pressure-like right-sided chest pain that radiated into the right arm 2 nights ago, started while at rest. The pain improved with nitroglycerin in the emergency department. She was admitted to our service and had serial troponins which showed a significant elevation. EKG was unchanged. She had a cardiac catheterization done today. She reports no further chest pain since then. She reports a personal history of blood clots in the past. - Constitutional Vitals: Temp Pulse Resp BP Pulse Ox 98.0 F 77 18 118/74 97 12/02/16 15:16 12/02/16 15:16 12/02/16 15:16 12/02/16 15:16 12/02/16 15:16 General appearance: Present: A&O X 3, pleasant, no acute distress, obese - Respiratory Respiratory exam: Present: CTAB. Absent: accessory muscle use, rales, rhonchi, wheezes - Cardiovascular Cardiovascular exam: Present: RRR, +S1, +S2. Absent: diastolic murmur, gallop, rubs, systolic murmur - GI/Abdominal GI/Abdominal exam: Present: normal bowel sounds, soft, no peritoneal signs. Absent: distended, tenderness - Extremities Exam Extremities exam: Present: warm, radial pulses palpable and symetrical. Absent : calf tenderness, cyanotic, pedal edema - Skin Skin exam: Present: dry, intact Internal Medicine: Result - Labs CBC & Chem 7: 12/02/16 05:02 12/02/16 05:02 Labs: Short CBC 12/02/16 Range/Units 05:02 WBC 7.1 (4.3-11.1) K/mcL Hgb 13.3 (11.5-15.4) g/dL Hct 39.2 (35.3-44.9) % Plt Count 198 (140-400) K/mcL Neutrophils # 4.9 (1.6-8.9) K/mcL BMP 12/02/16 05:02 Sodium 139 Potassium 4.0 Chloride 106 Carbon Dioxide 26 BUN 10 Creatinine 0.86 Glucose 99 Calcium 9.0 Cardiac Enzymes 12/01/16 Range/Units 20:58 Troponin I 0.49 H* (0-0.03) ng/mL - ABG Interpretation ABG results: PT/INR, D-dimer PT 13.3 Seconds (9.4-12.1) H 12/01/16 14:21 Consult Discharge Plan - Plan Referrals: Reyes Tidwell MD [Primary Care Provider] - (web request sent on 12/02/16)
[2016-12-02] MEDS ORDERED: *HR* Heparin 5,000 UNIT/ML VIAL IVP PRN ×4 (17:54→18:46)
[2016-12-02] MEDS ORDERED: *HR* Heparin 5,000 UNIT/ML VIAL IVP ONE ×2 (17:54→18:46)
[2016-12-02] MEDS ORDERED: Heparin 25,000 UNIT/500 ML D5W 25,000 UNIT/500 ML MLS IVC SCH ×2 (18:00→19:00)
[2016-12-02 18:17] LABS: Hematocrit 40.9 % (35.3-44.9); Hemoglobin 13.7 g/dL (11.5-15.4); Mean Corpuscular HGB Conc 33.5 g/dL (31.6-35.5); Mean Corpuscular Hemoglobin 30.5 pg (28.0-33.3); Mean Corpuscular Volume 91.1 fL (83.0-100.0); Platelet Count 218 K/mcL (140-400); Red Blood Count 4.49 M/mcL (3.82-4.97); Red Cell Distribution Width 12.8 % (11.5-14.5)
[2016-12-02 18:40] LABS: INR 1.2; Prothrombin Time 12.5 Seconds (9.4-12.1)
[2016-12-02 18:44] LABS: Activated Partial Thrombo Time 23.2 Seconds (26.0-36.0)
[2016-12-02] MEDS: 0.9 % Sodium Chloride 1,000 ML IVC SCH (18:46)
[2016-12-03] MEDS: 0.9 % Sodium Chloride 1,000 ML IVC SCH (02:55)
[2016-12-03 06:04] LABS: Basophils % 0.5 %; Eosinophils # 0.3 K/mcL (0.0-0.6); Eosinophils % 4.1 %; Hematocrit 38.9 % (35.3-44.9); Hemoglobin 12.7 g/dL (11.5-15.4); Immature Granulocytes % 0.3 % (0-4); Immature Platelets 1.9 % (1.1-6.1); Lymphocytes # 1.6 K/mcL (0.6-4.6); Lymphocytes % 25.6 %; Mean Corpuscular HGB Conc 32.6 g/dL (31.6-35.5); Mean Corpuscular Hemoglobin 30.1 pg (28.0-33.3); Mean Corpuscular Volume 92.2 fL (83.0-100.0); Mean Platelet Volume 9.3 fL (9.4-12.4); Monocytes # 0.6 K/mcL (0.0-1.3); Monocytes % 9.7 %; Neutrophils # 3.7 K/mcL (1.6-8.9); Platelet Count 186 K/mcL (140-400); Red Blood Count 4.22 M/mcL (3.82-4.97); Segmented Neutrophils % 59.8 %
[2016-12-03 06:20] LABS: BUN/Creatinine Ratio 11 (6-26); Blood Urea Nitrogen 8 mg/dL (7-20); Calcium 8.9 mg/dL (8.6-10.8); Carbon Dioxide 26 mEq/L (19-29); Chloride 109 mEq/L (98-109); Glucose 94 mg/dL (70-99); Magnesium 1.8 mg/dL (1.6-2.6); Osmolality,Calculated 292 (280-300); Sodium 142 mEq/L (136-145); eGFR For African Americans > 60 (> 60); eGFR For Non-African Americans > 60 (> 60)
[2016-12-03] MEDS: traMADol 50 MG TABLET PO PRN (06:40)
[2016-12-03] MEDS: Folic Acid 1 MG TABLET PO SCH (09:40)
[2016-12-03] MEDS: Gabapentin 400 MG CAPSULE PO SCH (09:40)
[2016-12-03] MEDS: Loratadine 10 MG TABLET PO SCH (09:40)
[2016-12-03] MEDS: Aspirin Enteric Coated 81 MG Tablet PO SCH (09:40)
[2016-12-03] MEDS: Famotidine 20 MG TABLET PO SCH (09:41)
[2016-12-03 12:28] VITALS: BP 113/72
--- NOTE | 2016-12-03 14:46 | Discharge Summary ---
Date of Encounter: 12/03/16 Time of Encounter: 14:44 - Discharge Diagnosis (1) Chest pain Priority: Secondary Status: Acute Qualifiers: Chest pain type: chest pain due to myocardial ischemia Ischemic chest pain type: unstable angina pectoris Qualified Code(s): I20.0 - Unstable angina (2) NSTEMI (non-ST elevated myocardial infarction) Priority: Primary Status: Acute (3) DVT prophylaxis Priority: Secondary Status: Acute (4) Axillary lymphadenopathy Priority: Secondary Status: Acute (5) Lupus Priority: Secondary Status: Chronic Qualifiers: Systemic lupus erythematosus type: unspecified Systemic lupus erythematosus organ involvement: unspecified Qualified Code(s): M32.9 - Systemic lupus erythematosus, unspecified - Discharge Medications Prescriptions: Aspirin Enteric Coated [Aspirin EC] 81 mg PO DAILY #30 tablet. Atorvastatin [Lipitor] 40 mg PO HS #30 tablet Metoprolol [Lopressor] 12.5 mg PO BID #60 tablet Home Medications: Calcium Carbonate/Vitamin D3 [Calcium 600-Vit D3 200 Tablet] 1 tab PO DAILY [History] Cetirizine HCl [All Day Allergy] 10 mg PO DAILY 12/01/16 [History] Estrogens, Conjugated [Premarin] 0.625 mg PO DAILY 12/01/16 [History] Famotidine [Heartburn Prevention] 10 mg PO QTUTHSA 12/01/16 [History] Folic Acid 1 mg PO DAILY 12/01/16 [History] Gabapentin [Neurontin] 400 mg PO BID 12/01/16 [History] Hydroxychloroquine [Plaquenuil] 200 mg PO DAILY 12/01/16 [History] Methocarbamol [Robaxin] 500 mg PO BID PRN 12/01/16 [History] Methotrexate [Otrexup] 15 mg PO QWEEK 12/01/16 [History] Multivitamin [Multivitamins] 1 each PO DAILY 12/01/16 [History] Omeprazole [PriLOSEC] 40 mg PO QMWFSA 12/01/16 [History] Tramadol HCl [Ultram] 100 mg PO BID PRN 12/01/16 [History] Aspirin Enteric Coated [Aspirin EC] 81 mg PO DAILY #30 tablet. 12/03/16 [Rx] Atorvastatin [Lipitor] 40 mg PO HS #30 tablet 12/03/16 [Rx] Metoprolol [Lopressor] 12.5 mg PO BID #60 tablet 12/03/16 [Rx] Allergies/Adverse Reactions: Allergies cefuroxime [From Ceftin] Allergy (Verified 08/02/15 15:51) Rash Procedures/tests Complete & Pending: Procedures Performed prior 72 hours Category Date Time Status CT angio chest [CT] Stat Cat Scan 12/03/16 10:03 Draft CL Cardiac Catheterization [CL] Routine Principal Automation Engineer 12/01/16 14:41 Completed EV echocardiogram Stat Y 12/01/16 14:04 Completed Date of admission: 12/01/16 09:49 Primary care physician: Reyes Tidwell MD Consults: 12/01/16 14:06 Consult to Cardiology [CONS] Stat Comment: Consulting Provider: Cardiology [place] Reason for Consult: NSTEMI Call Completed: Yes 12/01/16 14:18 Consult to Cardiac Rehabilitation-Phase1 [CONS] Routine Comment: Reason for Consult: NSTEMI Call Completed: No - Patient Status Disposition: Home, Self-Care Condition: Fair Overall status at discharge: patient is back to baseline - Discharge Instructions Instructions: Metoprolol (By mouth), Aspirin (By mouth), Atorvastatin (By mouth ), Myocardial Infarction (DC) Follow Up With: Reyes Tidwell MD [Primary Care Provider] - (web request sent on 12/02/16) Additional Instructions: Follow-up with primary care physician in one to 2 weeks. Continue treatment with aspirin and metoprolol and Lipitor as per prescriptions provided. If you experience muscle pains in her lower extremity weakness please call your doctor right away. CT of the chest found an enlarged left axillary lymph node. I did advise scheduling an outpatient mammogram in 2-4 weeks with your PCP. - Diet and Activity Activity: increase activity as tolerated Diet: advance to your usual diet Hospital course: Ms. Kim is a 46 year old female with past medical history significant for systemic lupus erythematosus who presented to the hospital for sudden onset chest pain. Her initial troponin was 0. Serial troponin showed a significant elevation with a peak at 0.49. She was diagnosed with non-ST elevation CT and admitted to the medical service. She received treatment with IV heparin continuous infusion. Cardiology was consulted. She had a cardiac catheterization which showed minimal evidence of CAD with no lesions requiring intervention. The recommendation was maximal medical management. She had a CT of the chest which found no evidence of pulmonary embolism. An enlarged lymph node was detected in the left axilla. We recommend follow-up with outpatient mammogram within 2-4 weeks. I have discussed this in detail with the patient. The patient is currently chest pain-free. Cardiology has cleared her for discharge. She will be given prescriptions for aspirin, metoprolol and Lipitor. She is currently medically stable for discharge home. - Time Spent with Patient Total time spent providing and/or coordinating discharge services: Greater than 30 minutes (I have spent 40 minutes coordinating this discharge.) - Constitutional Vitals: Temp Pulse Resp BP Pulse Ox 97.7 F 63 16 113/72 98 12/03/16 12:26 12/03/16 12:26 12/03/16 12:26 12/03/16 12:26 12/03/16 12:26 General appearance: Present: A&O X 3, pleasant, no acute distress, obese - Respiratory Respiratory exam: Present: CTAB. Absent: accessory muscle use, rales, rhonchi, wheezes - Cardiovascular Cardiovascular exam: Present: RRR, +S1, +S2. Absent: diastolic murmur, gallop, rubs, systolic murmur - GI/Abdominal GI/Abdominal exam: Present: normal bowel sounds, soft, no peritoneal signs. Absent: distended, tenderness - Skin Skin exam: Present: dry, intact
== END 2016-12-03 15:55 | disposition home or self-care (01) ==
LOC: 2ANU 07:53 → EMEROO 07:53 → SUATTDRO 09:49 → 2ANU 10:55
PROVIDERS: ADMIT Internal Medicine; ATTEND Internal Medicine